=== PATIENT | female | born 1965 | race Caucasian/White ===

== ENCOUNTER → 2019-11-12 10:37 | Outpatient (CLI) | payer BC, SELFPAY ==
--- NOTE | ~2019-11-12 | MM_ITS ---
EXAMINATION: MM screening [facility] BI w mima HISTORY: Screening mammogram TECHNIQUE: Craniocaudal and mediolateral oblique 3-D tomosynthesis images were obtained and synthetic 2-D images were generated. CAD analysis was submitted and interpreted. COMPARISON: 05/05/2018, 10/31/2016, 08/02/2015 BREAST PARENCHYMAL COMPOSITION: There are scattered areas of fibroglandular density. FINDINGS: There is no evidence of suspicious mass, calcification, or architectural distortion to sugg est malignancy in either breast. There has been no suspicious interval change. IMPRESSION: 1. No mammographic evidence of malignancy. 2. Recommend routine screening mammography in one year. BI-RADS Category 1: Negative Reviewed, dictated and finalized at location A.
== END ==
PROVIDERS: Visit Provider Student in an Organized Health Care Education/Training Program
DX: Z12.31 Encounter for screening mammogram for malignant neoplasm of breast (principal)
CPT/HCPCS: 77063; 77067

== ENCOUNTER → 2021-01-17 11:33 | Outpatient (CLI) | payer BC, SELFPAY ==
--- NOTE | ~2021-01-17 | MM_ITS ---
EXAMINATION: MM screening [facility] BI w mima HISTORY: Screening TECHNIQUE: Craniocaudal and mediolateral oblique 3-D tomosynthesis images were obtained and synthetic 2-D images were generated. CAD analysis was submitted and interpreted. COMPARISON: Comparison to multiple prior studies sequentially, with oldest reviewed study dated 12/11. BREAST PARENCHYMAL COMPOSITION: Breast composed of scattered areas of fibroglandular density. FINDINGS: There is no evidence of suspicious mass, calcification, or architectural distortion to sugg est malignancy in either breast. There has been no suspicious interval change. IMPRESSION: 1. No mammographic evidence of malignancy. 2. Recommend routine screening mammography in one year. BI-RADS Category 1: Negative Reviewed, dictated and finalized at location A. 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
== END ==
PROVIDERS: PCP Internal Medicine; Visit Provider Internal Medicine
DX: Z12.31 Encounter for screening mammogram for malignant neoplasm of breast (principal)
CPT/HCPCS: 77063; 77067

== ENCOUNTER → 2022-03-07 16:34 | Outpatient (CLI) | payer BC, SELFPAY ==
--- NOTE | ~2022-03-07 | XR_ITS ---
XR foot RT min 3V 03/07/2022 17:05 Indication: Right foot pain Procedure: 4 views right foot Comparison: 03/18/2011 Findings: There is anatomic alignment. Lisfranc joint intact. There is a small degenerative calcaneal enthesophyte. No fracture or traumatic malalignment. No significant soft tissue abnormality. No fore ign bodies. Impression: 1: No significant bone or joint abnormality. Reviewed, dictated and finalized at location A. PROGRESSIVE CARE Impression: 1: No significant bone or joint abnormality.
--- NOTE | ~2022-03-07 | XR_ITS ---
XR hip BI wo pelvis 03/07/2022 17:05 Indication: Low back pain Procedure: 2 views each hip Comparison: 08/27/2013 Findings: There is mild bilateral osteoarthritis of the hips. No fracture or traumatic malalignment. No significant soft tissue abnormality. No foreign bodies. Impression: 1: Mild osteoarthritis of the hips. Reviewed, dictated and finalized at location A. CLERK Impression: 1: Mild osteoarthritis of the hips.
--- NOTE | ~2022-03-07 | XR_ITS ---
XR lumbar spine 2-3V 03/07/2022 17:05 Indication: Low back pain Procedure: 3 views lumbar spine Comparison: 08/27/2013 Findings: There is surgical fusion changes at L5-S1. There is disc narrowing at L5-S1. No acute fract ure or traumatic malalignment. There are laminectomy changes at L5-S1. Normal lumbar lordosis. There is mild disc narrowing at L3-4 and L4-5. Impression: 1: Mild lumbar spondylosis with fusion at L5-S1. Reviewed, dictated and finalized at location A. SHUNTER Impression: 1: Mild lumbar spondylosis with fusion at L5-S1.
== END ==
PROVIDERS: PCP Internal Medicine; Visit Provider Chiropractor
DX: M16.0 Bilateral primary osteoarthritis of hip (principal); M47.817 Spondylosis without myelopathy or radiculopathy, lumbosacral region; M79.671 Pain in right foot
CPT/HCPCS: 72100; 73521; 73630

== ENCOUNTER 2022-04-12 09:39 | Emergency (ER) | payer BC, SELFPAY ==
--- NOTE | 2022-04-12 09:45 | ED.GENADULT ---
HPI - General Adult General Chief complaint: Arrhythmia/Palpitations Stated complaint: heart palpatations Time Seen by Provider: 04/12/22 09:45 Source: patient, RN notes reviewed and old records reviewed Mode of arrival: ambulatory Limitations: no limitations History of Present Illness HPI narrative: 57-year-old female presents to the [facility] with complaints of heart palpitations that has been increasing over the last 24 hours. Patient reports that it started at work yesterday. States that it feels like her heart is beating harder a little faster and can see/feel under her left breast her heart beating. Patient denies any nausea or vomiting with it. States she felt a little weaker when working out yesterday. Patient reports that she called her primary and was referred to the [facility] Onset (ago): day(s) (1) Radiation: non-radiation Related Data Home Medications Medication Instructions Recorded Confirmed bupropion HCl 150 mg 24 hr tablet, 150 mg PO QAM 11/18/19 05/02/21 extended release escitalopram oxalate 20 mg tablet 40 mg PO DAILY 11/18/19 05/02/21 multivitamin,[id number] 1 tablet PO DAILY 12/02/19 05/02/21 (Complete Multivitamin tablet) Allergies Allergy/AdvReac Type Severity Reaction Status Date / Time No Known Allergies Allergy Unknown Verified 04/12/22 09:55 Review of Systems Review of Systems: All systems reviewed & are unremarkable except as noted in HPI and below Constitutional: Constitutional: Reports no additional constitutional complaints Eyes: Eyes: Reports no additional eye complaints ENT: Reports system reviewed and no additional complaints, except as documented Cardiovascular: Cardiovascular: Reports as per HPI, Denies chest pain, Reports irregular heart rhythm and Denies dyspnea Respiratory: Respiratory: Reports no additional respiratory complaints, Denies chest congestion, Denies cough and Denies dyspnea Gastrointestinal: Gastrointestinal: Reports no additional gastrointestinal complaints, Denies abdominal pain, Denies nausea and Denies vomiting Musculoskeletal: Musculoskeletal: Reports no additional musculoskeletal complaints Integumentary/Breasts: Skin/Breast: Reports system reviewed and no additional complaints, except as docu Neurologic: Reports system reviewed and no additional complaints, except as documented Psychiatric: Psychiatric: Reports no additional psychiatric complaints Allergic/Immunologic: Allergic/Immunologic: Reports no additional allergic/immunologic complaints PMFSH Past Medical History Medical History Allergies Anxiety Asthma COPD (chronic obstructive pulmonary disease) Diverticulosis HSV (herpes simplex virus) infection Mitral valve disorder Surgical History Surgical History History of back surgery Previous section [place] teeth removed Family History Family History Father Hypertension Family history of malignant neoplasm Glaucoma Sibling Family history of throat cancer Family history of malignant neoplasm of urinary bladder Mother Asthma Grandparent Diabetes mellitus Cancer Social History Social History Smoking status: Never smoker Smoking end date: 02/10/14 Alcohol intake: current Comments At the time of my signature, I reviewed and agree with the nursing past medical, surgical, social, and family history. There is no relevant family history pertinent to the patient complaint. Exam Const: General: cooperative, healthy appearing, comfortable, no acute distress, well developed, alert and well nourished Nutritional Appearance: well nourished and obese Orientation/consciousness: patient oriented x3 Limitations: no limitations HENMT: Head: normal to inspection Ears: hearing grossly anitha
[2022-04-12 09:47] VITALS: BP 108/69; PULSE 66; RESP 16; TEMP 37; O2SAT 99
--- NOTE | 2022-04-12 09:55 | ECG_ITS ---
Measurements Intervals [place] Rate: 63 P: 51 CO: 154 QRS: 49 QRSD: 86 T: 40 QT: 408 QTc: 418 Interpretive Statements SINUS RHYTHM POSSIBLE LEFT ATRIAL ENLARGEMENT BASELINE ARTIFACT- II, III, AVL, AVF BORDERLINE ECG NO PREVIOUS ECG AVAILABLE FOR COMPARISON Electronically Signed On 04-12-2022 10:04:04 COVER CUTTER MACHINE by Jay Potts D.O.
== END 2022-04-12 10:06 | disposition short-term general hospital (02) ==
LOC: EXPGOSH 09:41
PROVIDERS: Emergency Provider Nurse Practitioner; PCP Internal Medicine
DX: R00.2 Palpitations (principal)
CPT/HCPCS: 93005; 99213; G0463

== ENCOUNTER 2022-04-12 10:26 | Emergency (ER) | payer BC, SELFPAY ==
--- NOTE | ~2022-04-12 | XR_ITS ---
EXAMINATION: XR chest 2V DATE: 04/12/2022 11:55 INDICATION: Chest pain. Heart palpitations. TECHNIQUE: Frontal and lateral views of the chest were obtained. COMPARISON: Chest 2 views 08/10/2010 FINDINGS: Calcified bilateral lung nodules and calcified left hilar lymph nodes are consistent with o ld granulomatous disease. No pleural effusion or pneumothorax. The heart size is normal. IMPRESSION: 1. No acute cardiopulmonary disease. Reviewed, dictated and finalized at location A. 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
--- NOTE | 2022-04-12 10:29 | ECG_ITS ---
Measurements Intervals [place] Rate: 59 P: 58 VT: 153 QRS: 52 QRSD: 87 T: 48 QT: 412 QTc: 411 Interpretive Statements SINUS BRADYCARDIA BORDERLINE ECG COMPARED TO ECG 04/12/2022 10:00:40 SINUS BRADYCARDIA NOW PRESENT Electronically Signed On 04-12-2022 10:43:35 SPINNER CONTINUOUS by Jay Potts D.O.
[2022-04-12 10:32] VITALS: BP 131/66; PULSE 60; RESP 16; TEMP 36.9; O2SAT 99
[2022-04-12 10:58] LABS: Basophils Percent Auto 0.5 % (0.2-1.2); Eosinophils Absolute Auto 0.2 K/mm3 (0-0.3); Eosinophils Percent Auto 2.9 % (0-4.4); Hematocrit 40.5 % (37.0-47.0); Hemoglobin 13.1 g/dL (12.0-15.0); Immature Granulocyte Absolute 0.01 K/mm3 (0.00-0.031); Immature Granulocyte Percent A 0.2 % (0-0.5); Lymphocytes Absolute Auto 1.98 K/mm3 (0.9-3.2); Lymphocytes Percent Auto 33.7 % (18.3-44.2); Mean Corpuscular HGB Conc 32.3 g/dl (32-36); Mean Corpuscular Hemoglobin 30.2 pg (26-34); Mean Corpuscular Volume 93.3 fl (80-100); Monocytes Absolute Auto 0.5 K/mm3 (0.1-0.6); Monocytes Percent Auto 8.5 % (2.6-8.5); Neutrophils Absolute Auto 3.2 K/mm3 (1.3-6.7); Neutrophils Percent Auto 54.2 % (45.5-73.1); Platelet Count Result 259 k/mm3 (150-375); Red Blood Count 4.34 M/mm3 (4.2-5.4); Red Cell Distribution Width 12.7 % (11.5-14.5); White Blood Count 5.9 K/mm3 (4.5-10.0)
[2022-04-12 11:09] LABS: Alanine Aminotransferase 29 U/L (6-35); Albumin Level 4.5 g/dL (3.5-5.1); Alkaline Phosphatase 85 U/L (38-126); Anion Gap 6 mmol/L (8-16); Aspartate Amino Transferase 36 U/L (14-36); Bilirubin,Total 0.4 mg/dL (0.2-1.3); Blood Urea Nitrogen 14 mg/dL (7-17); Carbon Dioxide 30 mmol/L (22-30); Chloride 100 mmol/L (98-107); Estimated CRCL calculation 73 ml/min; Estimated Glomerular Filt Rate > 60; Glucose 82 mg/dL (65-110); Lipase 99 U/L (23-300); Potassium 4.4 mmol/L (3.4-5.0); Sodium 136 mmol/L (137-145)
[2022-04-12 11:10] LABS: Prothrombin Time 12.6 Seconds (11.1-14.7)
[2022-04-12 11:11] LABS: Partial Thromboplastin Time 29.4 SECONDS (22.3-36.8)
[2022-04-12 11:20] LABS: Troponin I < 0.012 ng/mL (0.000-0.034)
[2022-04-12 12:23] VITALS: BP 105/69; PULSE 58; RESP 15; O2SAT 98
--- NOTE | 2022-04-12 12:32 | ED.ARRPALP ---
HPI - Arrhythmia/Palpitations General Chief Complaint: Arrhythmia/Palpitations Stated Complaint: HEAR PALPATATIONS Time Seen by Provider: 04/12/22 12:07 History of Present Illness HPI narrative: Patient is a 57-year-old female with a history of anxiety presenting with heart palpitations. Patient states that for the last days she has had intermittent heart palpitations associated with some burning under her left breast. States that she feels slightly lightheaded with these episodes. Denies shortness of breath. Denies chest pain. No fevers or chills, cough, abdominal pain, nausea or vomiting, dysuria, leg swelling. Related Data Home Medications Medication Instructions Recorded Confirmed bupropion HCl 150 mg 24 hr tablet, 150 mg PO QAM 11/18/19 04/12/22 extended release escitalopram oxalate 20 mg tablet 40 mg PO DAILY 11/18/19 04/12/22 multivitamin,[id number] 1 tablet PO DAILY 12/02/19 04/12/22 (Complete Multivitamin tablet) Allergies Allergy/AdvReac Type Severity Reaction Status Date / Time No Known Allergies Allergy Unknown Verified 04/12/22 09:55 Review of Systems Review of Systems: All systems reviewed & are unremarkable except as noted in HPI and below PMFSH Past Medical History Medical History Allergies Anxiety Asthma COPD (chronic obstructive pulmonary disease) Diverticulosis HSV (herpes simplex virus) infection Mitral valve disorder Surgical History Surgical History History of back surgery Previous section [place] teeth removed Family History Family History Father Hypertension Family history of malignant neoplasm Glaucoma Sibling Family history of throat cancer Family history of malignant neoplasm of urinary bladder Mother Asthma Grandparent Diabetes mellitus Cancer Social History Social History Smoking status: Never smoker Smoking end date: 02/10/14 Alcohol intake: current Exam Narrative: GENERAL: Well-appearing, well-nourished, and in no acute distress. HEAD: Normocephalic, atraumatic. EYES: PERRLA and EOMI. ENT: Nares clear, no rhinorrhea or epistaxis. Mucous membranes moist. NECK: Supple. CHEST: Clear to auscultation. No respiratory distress. HEART: Regular rate and rhythm. No murmur heard. Normal peripheral pulses. ABDOMEN: Soft, nontender, nondistended EXTREMITIES: Normal range of motion. No edema. SKIN: Warm, dry, no rash. NEURO: No focal deficits. Alert and oriented x3. PSYCH: Normal mood and affect. Course Vital Signs Vital signs: Vital Signs Temperature 98.5 F 04/12/22 10:32 Pulse Rate 60 04/12/22 10:32 Respiratory Rate 16 04/12/22 10:32 Blood Pressure 131/66 04/12/22 10:32 Pulse Oximetry 99 04/12/22 10:32 Oxygen Delivery Room Air 04/12/22 10:32 Temperature 98.5 F 04/12/22 10:32 Pulse Rate 72 04/12/22 18:11 Respiratory Rate 16 04/12/22 18:11 Blood Pressure 134/78 04/12/22 18:11 Pulse Oximetry 98 04/12/22 18:11 Oxygen Delivery Room Air 04/12/22 10:32 MDM - Arrhythmia/Palpitations MDM Narrative Medical decision making narrative: Patient is a 57-year-old female presenting with heart palpitations. Vitals are within normal limits. Patient is well-appearing and in no acute distress. Exam is unremarkable. EKG per my interpretation shows sinus bradycardia, normal axis and intervals, no ST elevations or depressions. Chest x-ray with no acute abnormalities. Blood work is unremarkable. Plan for delta troponin and fluids. Delta troponin is still within normal limits but it is now 0.017. Plan for 6-hour troponin. 6-hour troponin is again undetectable. On reevaluation, the patient is resting comfortably. She denies current complaints. Feel she is safe for outpa
[2022-04-12] MEDS: SODIUM CHLORIDE 0.9% IV 1,000 ML 999 ML IV CONT (13:14)
[2022-04-12 13:32] LABS: Magnesium 2.3 mg/dL (1.6-2.3)
[2022-04-12 14:22] VITALS: BP 100/61; PULSE 65; RESP 14; O2SAT 98
[2022-04-12 15:36] LABS: Troponin I 0.017 ng/mL (0.000-0.034)
[2022-04-12 16:05] VITALS: BP 102/56; PULSE 76; RESP 16; O2SAT 99
[2022-04-12 17:29] LABS: Troponin I < 0.012 ng/mL (0.000-0.034)
[2022-04-12 18:11] VITALS: BP 134/78; PULSE 72; RESP 16; O2SAT 98
== END 2022-04-12 18:12 | disposition home or self-care (01) ==
PROVIDERS: Emergency Medicine; Emergency Provider Emergency Medicine; PCP Internal Medicine
DX: R00.2 Palpitations (principal); J44.9 Chronic obstructive pulmonary disease, unspecified; F41.9 Anxiety disorder, unspecified; B00.9 Herpesviral infection, unspecified; Z79.51 Long term (current) use of inhaled steroids
CPT/HCPCS: 36415; 71046; 80053; 83690; 83735; 84484; 85025; 85610; 85730; 93005; 96360; 99284; J7030

== ENCOUNTER → 2022-06-21 12:18 | Outpatient (CLI) | payer BC, SELFPAY ==
--- NOTE | ~2022-06-21 | MM_ITS ---
EXAMINATION: MM screening [facility] BI w [facility] HISTORY: Screening mammogram TECHNIQUE: Craniocaudal and mediolateral oblique 3-D tomosynthesis images were obtained and synthetic 2-D images were generated. CAD analysis was submitted and interpreted. COMPARISON: 01/17/2021, 11/12/2019, 05/05/2018 BREAST PARENCHYMAL COMPOSITION:There are scattered areas of fibroglandular density. FINDINGS: No suspicious mass, calcification, or architectural distortion are identified in either taurus ast to suggest malignancy. There has been no suspicious interval change. IMPRESSION: No mammographic evidence of malignancy. Recommend routine screening mammography in one year. BI-RADS Category 1: Negative Reviewed, dictated and finalized at location .
== END ==
PROVIDERS: PCP Internal Medicine; Visit Provider Registered Nurse
DX: Z12.31 Encounter for screening mammogram for malignant neoplasm of breast (principal)
CPT/HCPCS: 77063; 77067

== ENCOUNTER 2023-05-15 09:01 | Outpatient (CLI) | payer BC, SELFPAY ==
[2023-05-15 13:08] LABS: Basophils Percent Auto 0.4 % (0.2-1.2); Eosinophils Absolute Auto 0.2 K/mm3 (0-0.3); Eosinophils Percent Auto 2.4 % (0-4.4); Hematocrit 44.6 % (37.0-47.0); Hemoglobin 13.9 g/dL (12.0-15.0); Immature Granulocyte Absolute 0.03 K/mm3 (0.00-0.031); Immature Granulocyte Percent A 0.4 % (0-0.5); Lymphocytes Absolute Auto 1.64 K/mm3 (0.9-3.2); Lymphocytes Percent Auto 24.4 % (18.3-44.2); Mean Corpuscular HGB Conc 31.2 g/dl (32-36); Mean Corpuscular Hemoglobin 29.4 pg (26-34); Mean Corpuscular Volume 94.3 fl (80-100); Mean Platelet Volume 9.7 fl (7.4-10.4); Monocytes Absolute Auto 0.6 K/mm3 (0.1-0.6); Monocytes Percent Auto 9.2 % (2.6-8.5); Neutrophils Absolute Auto 4.2 K/mm3 (1.3-6.7); Neutrophils Percent Auto 63.2 % (45.5-73.1); Platelet Count Result 262 k/mm3 (150-375); Red Blood Count 4.73 M/mm3 (4.2-5.4); White Blood Count 6.7 K/mm3 (4.5-10.0)
[2023-05-15 14:10] LABS: Alanine Aminotransferase 37 U/L (6-35); Albumin Level 4.1 g/dL (3.5-5.1); Alkaline Phosphatase 85 U/L (38-126); Anion Gap 3 mmol/L (4-12); Aspartate Amino Transferase 51 U/L (14-36); Bilirubin,Total 0.4 mg/dL (0.2-1.3); Blood Urea Nitrogen 20 mg/dL (7-17); Calcium 9.4 mg/dL (8.4-10.2); Carbon Dioxide 34 mmol/L (22-30); Chloride 103 mmol/L (98-107); Cholesterol 146 mg/dL (0-200); Estimated Glomerular Filt Rate > 60; Glucose 73 mg/dL (65-110); HDL Direct 61 mg/dL; Potassium 4.8 mmol/L (3.4-5.0); Sodium 140 mmol/L (137-145); Triglycerides 50 mg/dL (<150); Vitamin D 25 Hydroxy 40.6 ng/mL
[2023-05-15 14:21] LABS: LDL Cholesterol Direct 62 mg/dL
== END 2023-05-15 09:02 | disposition home or self-care (01) ==
LOC: ANHGOSHLAB 09:03
PROVIDERS: PCP Internal Medicine; Visit Provider Nurse Practitioner
DX: E66.9 Obesity, unspecified (principal); F41.9 Anxiety disorder, unspecified; Z13.21 Encounter for screening for nutritional disorder; R79.89 Other specified abnormal findings of blood chemistry
CPT/HCPCS: 36415; 80053; 80061; 82306; 84443; 85025

== ENCOUNTER 2023-09-27 07:51 | Outpatient (CLI) | payer BC, SELFPAY ==
--- NOTE | ~2023-09-27 | MM_ITS ---
EXAMINATION: MM screening [facility] w [facility] HISTORY: Screening TECHNIQUE: Craniocaudal and mediolateral oblique 3-D tomosynthesis images were obtained and synthetic 2-D images were generated. CAD analysis was submitted and interpreted. COMPARISON: Comparison to multiple prior studies sequentially, with oldest reviewed study dated 08/01. BREAST PARENCHYMAL COMPOSITION: There are scattered areas of fibroglandular density. FINDINGS: There is no evidence of suspicious mass, calcification, or architectural distortion to sugg est malignancy in either breast. There has been no suspicious interval change. IMPRESSION: 1. No mammographic evidence of malignancy. 2. Recommend routine screening mammography in one year. BI-RADS Category 1: Negative Reviewed, dictated and finalized at location B.
== END 2023-09-27 07:52 ==
PROVIDERS: PCP Internal Medicine; Visit Provider Nurse Practitioner Family
DX: Z12.31 Encounter for screening mammogram for malignant neoplasm of breast (principal)
CPT/HCPCS: 77063; 77067